=== PATIENT | male | born 1955 | race Caucasian/White ===

== ENCOUNTER 2016-07-29 10:15 | Day surgery (SDC) | payer OTHER ==
[~2016-07-29] VITALS: Ht 160 cm; Wt 95.2 kg
[~2016-07-29 10:15] MED LIST: ACET325C PO; BETA15CR3 TP; DICL100G26 TOPICAL
[2016-07-29 10:44] VITALS: BP 139/95; PULSE 58; RESP 17; O2SAT 98
[2016-07-29] MEDS ORDERED: PRED5DRO6 OP (10:50)
[2016-07-29] MEDS ORDERED: fentaNYL-PF 50 mCg/mL 2 mL Inj ONE (10:58)
[2016-07-29 11:32] VITALS: BP 117/68; PULSE 57; RESP 16; O2SAT 98
[2016-07-29 11:42] VITALS: BP 106/68; PULSE 53; RESP 16; O2SAT 98
[2016-07-29 11:49] VITALS: BP 119/74; PULSE 52; RESP 16; O2SAT 98
[2016-07-29] MEDS ORDERED: 0.9% Sodium Chloride 1,000 ML IV ONE (11:58)
--- NOTE | 2016-07-29 13:09 | ENDO ---
[address] [address] ENDOSCOPY PROCEDURE PATIENT: MONIAK ARCOS : 1955 MR#: [id number] ADMIT: 07/29/2016 JOB ID: [id number] DATE: 07/29/2016 TYPE OF OPERATION: Colonoscopy. PREOPERATIVE DIAGNOSIS(ES): Colorectal cancer screening. POSTOPERATIVE DIAGNOSIS(ES): Normal colonoscopy. ANESTHESIA: 1. Fentanyl 100 mcg. 2. Versed 5 mg IV administered. COMPLICATIONS: None. BLOOD LOSS: Minimal. DESCRIPTION OF PROCEDURE: After risks and benefits were explained to the patient, informed consent was obtained. After anesthesia administered, a colonoscope was then inserted from the rectum to the cecum. Mucosa carefully examined. Prep of the patient was excellent. After procedure was done, the scope withdrawn and procedure terminated. FINDINGS: Upon inspection of the anus, no masses, hemorrhoids, ulcers, fissures that were seen. Throughout the entire examination, there were no polyps, masses, or lesions. Retroflexion was normal. IMPRESSION: Normal colonoscopy. RECOMMENDATION: Repeat colonoscopy 10 years for colorectal cancer screening.
== END 2016-07-29 23:59 | disposition home or self-care (01) ==
LOC: END 10:15
PROVIDERS: ATTEND Internal Medicine Gastroenterology
DX: Z12.11 Encounter for screening for malignant neoplasm of colon (principal); Z83.71 Family history of colonic polyps; I10 Essential (primary) hypertension; E78.2 Mixed hyperlipidemia; G43.109 Migraine with aura, not intractable, without status migrainosus; N40.1 Benign prostatic hyperplasia with lower urinary tract symptoms
CPT/HCPCS: G0105; G0500; J2250; J3010; J7030